=== PATIENT | female | born 1955 | race Native Hawaiian/Other Pacific Islander ===

== ENCOUNTER 2019-03-24 12:00 | Inpatient (IN) | payer OTHER ==
[2019-03-24] VITALS (14 sets, daily range): BP systolic 84–165; BP diastolic 40–91; TEMP 97.9–98.1; Ht 165.1 cm; Wt 77.6 kg
[~2019-03-24] VITALS: Ht 165.1 cm; Wt 77.6 kg
[~2019-03-24 12:00] MED LIST: BENZ1TAB43 PO; FLUOXETINE40 MG PO; HI-CAL PO; INVEGA SUS78 MG/0.5 IM; LIPITOR20 MG PO; OMEPRAZOLE20 M1 PO; REMERON SOLTAB15 MG PO; TRAZ100T PO; VESICARE5 MG PO; VITAMIN D50000 UNIT PO
[2019-03-24] MEDS ORDERED: TRAZ50TA36 PO (17:04)
[2019-03-24] MEDS ORDERED: REMERON SOLTAB15 MG PO (17:05)
[2019-03-24] MEDS ORDERED: PANTOPRAZOLE 40MG TA PO (17:06)
[2019-03-24] MEDS ORDERED: KP FOLIC ACID1 MG PO (17:07)
[2019-03-24] MEDS ORDERED: FLUOXETINE20 MG PO (17:09)
[2019-03-24] MEDS ORDERED: N-ACETYL-L-CYS600 MG PO (17:10)
[2019-03-24] MEDS ORDERED: BENZ1TAB43 PO (17:11)
[2019-03-24] MEDS ORDERED: DIVALPROEX125 MG PO (17:12)
[2019-03-25] VITALS (32 sets, daily range): BP systolic 77–135; BP diastolic 31–111; TEMP 97.7–98.9
[2019-03-25 05:01] LABS: PLATELET COUNT 169 K/uL (152-353)
[2019-03-25 16:57] LABS: POTASSIUM 3.8 mmol/L (3.6-5.2)
[2019-03-26] VITALS (12 sets, daily range): BP systolic 90–127; BP diastolic 53–78; TEMP 97.8–99
[2019-03-26 05:12] LABS: PLATELET COUNT 196 K/uL (152-353)
[2019-03-26 05:18] LABS: POTASSIUM 3.7 mmol/L (3.6-5.2)
[2019-03-29] MEDS ORDERED: INVEGA SUST156 MG/ML IM (19:49)
[2019-03-29] MEDS ORDERED: DIVA125C PO (19:49)
[2019-03-29] MEDS ORDERED: VITAMIN D50000 UNIT PO (19:50)
[2019-03-29] MEDS ORDERED: BENZ1TAB43 PO (19:50)
[2019-03-29] MEDS ORDERED: PANTOPRAZOLE 40MG TA PO (19:50)
[2019-03-29] MEDS ORDERED: OXYB5TAB56 PO (19:50)
[2019-03-29] MEDS ORDERED: NAC 600600 MG PO (19:50)
[2019-03-29] MEDS ORDERED: ATOR20TA2 PO (19:50)
[2019-03-29] MEDS ORDERED: FOLI1TAB26 PO (19:50)
== END 2019-03-26 15:05 | disposition other institution (70) | DRG 690 ==
LOC: ICU 12:00
PROVIDERS: ADMIT Family Medicine
DX: N39.0 Urinary tract infection, site not specified (principal); E46 Unspecified protein-calorie malnutrition; F31.5 Bipolar disorder, current episode depressed, severe, with psychotic features; R41.82 Altered mental status, unspecified; F41.8 Other specified anxiety disorders; E55.9 Vitamin D deficiency, unspecified; E78.49 Other hyperlipidemia; N32.81 Overactive bladder; R62.7 Adult failure to thrive; I95.89 Other hypotension; E16.1 Other hypoglycemia; H18.51 Endothelial corneal dystrophy
CPT/HCPCS: 36415; 80048; 80053; 81000; 82550; 83605; 83735; 84484; 85027; 87088; 93005; A9576; J0696; J1956

== ENCOUNTER 2019-09-18 10:13 | Emergency (ER) | payer OTHER ==
[~2019-09-18] VITALS: Ht 157.5 cm; Wt 76.7 kg
[~2019-09-18 10:13] MED LIST changes: +ATOR20TA2 PO; +DIVA125C PO; +DIVALPROEX125 MG PO; +FLUOXETINE20 MG PO; +FOLI1TAB26 PO; +INVEGA SUST156 MG/ML IM; +KP FOLIC ACID1 MG PO; +N-ACETYL-L-CYS600 MG PO; +NAC 600600 MG PO; +OXYB5TAB56 PO; +PANTOPRAZOLE 40MG TA PO; +TRAZ50TA36 PO
[2019-09-18 10:29] VITALS: BP 107/55; TEMP 97.9
[2019-09-18 10:53] LABS: PLATELET COUNT 203 K/uL (152-353)
[2019-09-18 11:04] LABS: POTASSIUM 4.2 mmol/L (3.6-5.2); SODIUM 141 mmol/L (136-145)
[2019-09-18 11:07] LABS: PARTIAL THROMBOPLASTIN TIME 22.5 SECONDS (24.5-33.6)
[2019-09-18] MEDS ORDERED: NAC600 M1 PO (13:21)
[2019-09-18] MEDS ORDERED: FLUOXETINE20 MG PO (13:21)
[2019-09-18] MEDS ORDERED: DIVALPROEX125 M1 PO (13:40)
[2019-09-18] MEDS ORDERED: TRAZODONE HYDR100 MG PO (13:41)
[2019-09-18] MEDS ORDERED: PROTONIX20 MG PO (13:41)
[2019-09-18] MEDS ORDERED: IBUDONE PO (13:42)
== END 2019-09-18 12:35 | disposition still patient (30) ==
LOC: ED 10:13
PROVIDERS: Hospitalist
DX: F25.8 Other schizoaffective disorders (principal); F03.91 Unspecified dementia, unspecified severity, with behavioral disturbance; Z91.81 History of falling; Z79.899 Other long term (current) drug therapy; Z51.81 Encounter for therapeutic drug level monitoring; Z04.6 Encounter for general psychiatric examination, requested by authority
CPT/HCPCS: 36415; 80053; 80164; 80320; 82550; 83880; 84484; 85027; 85610; 85730; 93005; 96360; 96365; 99285